=== PATIENT | female | born 1950 | race Caucasian/White ===

== ENCOUNTER 2019-04-08 08:58 | Outpatient (RCR) | payer MEDICARE, OTHER ==
[~2019-04-08 08:58] MED LIST: ALENDRONATE SOD70 MG PO; AMLODIPINE BESYL5 MG PO; ASPIR-LOW81 MG PO; B-12 PO; B-COMPLEX PO; BACTRIM DS TAB1 EACH PO; BETA-CAROTENE PO; CALCIUM PO; DIOVAN320 MG PO; ELLURA PO; HYDRALAZINE HCL25 MG PO; KOREAN GINSENG PO; LEXAPRO10 MG PO; LIDOCAINE/PRILOCAINE 2.5-2.5% KIT ONE; LOTRONEX0.5 MG PO; MULTIVITAMIN PO; PHILLIPS' COLO1 EACH PO; POTASSIUM PO; SAVAYSA PO; SIMVASTATIN40 MG PO; TOPROL XL50 MG PO; VESICARE10 MG; VITAMIN C PO; VITAMIN D PO; ZANTAC300 MG PO; ZEGERID 40 MG1 EACH PO; [UNRECOGNIZED DRUG - OTHER] PO
[2019-04-08] MEDS ORDERED: LIDOCAINE/PRILOCAINE 2.5-2.5% KIT ONE (18:03)
[2019-04-08] MEDS ORDERED: MUPIROCIN 2% OINT 22 GM TUBE ONE (18:03)
[2019-04-08] MEDS ORDERED: TRIAMCINOLONE ACET 0.1% CREAM 15 GM TUBE ONE (18:03)
== END 2019-04-14 ==
LOC: WCC 08:58
PROVIDERS: ATTEND Family Medicine Adult Medicine
DX: S81.802A Unspecified open wound, left lower leg, initial encounter (principal); Y84.8 Other medical procedures as the cause of abnormal reaction of the patient, or of later complication, without mention of misadventure at the time of the procedure; I87.2 Venous insufficiency (chronic) (peripheral); R60.0 Localized edema; N18.9 Chronic kidney disease, unspecified; I10 Essential (primary) hypertension; I48.2 Chronic atrial fibrillation; K21.9 Gastro-esophageal reflux disease without esophagitis

== ENCOUNTER 2019-05-06 11:29 | Outpatient (RCR) | payer MEDICARE, OTHER ==
[~2019-05-06 11:29] MED LIST changes: +LIDOCAINE VISC 2% SOLN 15 ML UDC ONE; +MINERAL OIL/PETROLAT/GLYCERI 6OZ BTL ONE; +MUPIROCIN 2% OINT 22 GM TUBE ONE; +TRIAMCINOLONE ACET 0.1% CREAM 15 GM TUBE ONE
[2019-05-06] MEDS ORDERED: MINERAL OIL/PETROLAT/GLYCERI 6OZ BTL ONE (15:47)
== END 2019-05-15 ==
LOC: WCC 11:29
PROVIDERS: ATTEND Family Medicine Adult Medicine
DX: S81.802A Unspecified open wound, left lower leg, initial encounter (principal); Y84.8 Other medical procedures as the cause of abnormal reaction of the patient, or of later complication, without mention of misadventure at the time of the procedure; I87.2 Venous insufficiency (chronic) (peripheral); R60.0 Localized edema; N18.9 Chronic kidney disease, unspecified; I10 Essential (primary) hypertension; I48.2 Chronic atrial fibrillation; K21.9 Gastro-esophageal reflux disease without esophagitis

== ENCOUNTER → 2023-02-11 | Outpatient (CLI) | payer MEDICARE ==
[~2023-02-11] MED LIST changes: -LIDOCAINE VISC 2% SOLN 15 ML UDC ONE; -LIDOCAINE/PRILOCAINE 2.5-2.5% KIT ONE; -MINERAL OIL/PETROLAT/GLYCERI 6OZ BTL ONE; -MUPIROCIN 2% OINT 22 GM TUBE ONE; -TRIAMCINOLONE ACET 0.1% CREAM 15 GM TUBE ONE
== END ==
LOC: CT 11:20
PROVIDERS: ATTEND Family Medicine
DX: M54.2 Cervicalgia (principal); R29.898 Other symptoms and signs involving the musculoskeletal system; Z91.81 History of falling
CPT/HCPCS: 72125